=== PATIENT | male | born 1985 | race African-American/Black ===

== ENCOUNTER 2019-12-03 06:20 | Day surgery (SDC) | payer OTHER ==
[2019-12-03] MEDS ORDERED: AFRIN NASAL MIST 15 ML BOT ONE ×2 (08:10→09:14)
[2019-12-03] MEDS ORDERED: Midazolam HCl 2 mg/2 ml Vial ONE (08:45)
[2019-12-03] MEDS ORDERED: Bacitracin Zinc Ointment 30 gm TUBE ONE (09:14)
[2019-12-03] MEDS ORDERED: Lidocaine 1% w/Epinephrine 1:100K 20 ML VIAL ONE (09:14)
[2019-12-03] MEDS ORDERED: Fentanyl 100 MCG/2 ML VIAL ONE (09:16)
[2019-12-03] MEDS ORDERED: Ondansetron PF 4 MG/2 ML Vial ONE (10:21)
[2019-12-03] MEDS ORDERED: EPHEDRINE 25 MG/5 ML SYRINGE ONE (10:21)
[2019-12-03] MEDS ORDERED: Glycopyrrolate 0.2 MG/ML 5 ML SYRINGE ONE (10:21)
[2019-12-03] MEDS ORDERED: Dexamethasone 20 MG/5 ML VIAL ONE (10:21)
[2019-12-03] MEDS ORDERED: Lidocaine 1% PF 5 ML VIAL ONE (10:21)
[2019-12-03] MEDS ORDERED: PROPOFOL 200 MG/20 ML VIAL ONE (10:21)
[2019-12-03] MEDS ORDERED: Rocuronium Bromide 10 MG/ML (10ML VIAL) ONE (10:21)
[2019-12-03] MEDS ORDERED: Succinylcholine Chloride 20 MG/ML 10 ml SYRINGE FS ONE (10:21)
[2019-12-03] MEDS ORDERED: HYDROcodone/Acetaminophen 5/325 mg Tablet ONE (12:43)
--- NOTE | 2019-12-04 14:39 | OP ---
DATE OF PROCEDURE: 12/03/2019 PREOPERATIVE DIAGNOSES: 1. Nasal septoplasty. 2. Bilateral inferior turbinate hypertrophy. 3. Nasal obstruction. POSTOPERATIVE DIAGNOSES: 1. Nasal septoplasty. 2. Bilateral inferior turbinate hypertrophy. 3. Nasal obstruction. PROCEDURE PERFORMED: 1. Nasal septoplasty. 2. Bilateral inferior turbinate submucosal resection. ESTIMATED BLOOD LOSS: 20 mL. COMPLICATIONS: None. ANESTHESIA: GETA. DESCRIPTION OF PROCEDURE: The patient was taken to the operating room and GETA was obtained by the anesthesia staff. Afrin pledgets were then placed into the nasal cavity bilaterally. The patient was placed into the beach chair position and was prepped and draped for standard nasal surgical procedures. Following this, the Afrin pledgets were removed and 1% lidocaine with 1:100,000 epinephrine was injected via a 27 gauge needle into the nasal septum, the inferior turbinate and the middle turbinate bilaterally. Following this, a Solo incision was made on the left nasal septum and mucoperichondrial flaps were elevated. A strong 2 cm caudal and dorsal cartilage strut was left intact as the deviated portions of the nasal cartilage and bone was removed. A 4-0 gut stitch was used to reapproximate the nasal mucoperichondrial flaps as well as close the Morris incision. Following this, the submucosal microdebrider was used to puncture and submucosally resect the anterior-inferior portions of the hypertrophic inferior turbinates. The inferior turbinates were laterally outfractured with a Butler elevator. Job ID: [id number]
== END 2019-12-03 12:50 | disposition home or self-care (01) ==
LOC: SDC 06:20
PROVIDERS: ATTEND Otolaryngology Plastic Surgery within the Head & Neck
PROC: 09BM8ZZ Excision of Nasal Septum, Via Natural or Artificial Opening Endoscopic (ICD-10-PCS; principal; 2019-12-03)
PROC: 09TL8ZZ Resection of Nasal Turbinate, Via Natural or Artificial Opening Endoscopic (ICD-10-PCS; principal; 2019-12-03)
DX: J34.2 Deviated nasal septum (principal); J34.3 Hypertrophy of nasal turbinates; J34.89 Other specified disorders of nose and nasal sinuses; F17.200 Nicotine dependence, unspecified, uncomplicated; H61.20 Impacted cerumen, unspecified ear
CPT/HCPCS: J1100; J2001; J2250; J2405; J2704; J3010